=== PATIENT | female | born 1990 | race Hispanic/Latino ===

== ENCOUNTER 2017-03-26 22:19 | Emergency (ER) | payer BC ==
[2017-03-26 22:33] VITALS: BP 152/82; PULSE 64; RESP 18; TEMP 98; O2SAT 99
--- NOTE | 2017-03-26 23:00 | ED PDOC ---
HPI: General Adult Time Seen by Provider: 03/26/17 22:58 Chief Complaint (Nursing): Breast Problem Chief Complaint (Provider): BREAST PAIN History Per: Patient (26 Y/O FEMALE HERE WITH RIGHT BREAST PAIN ASSOCIATED WITH CYST. 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 HAS HAD ULTRASOUND LAST YEAR WNL. DENIES ANY FEVERS OR CHILLS.) Past Medical History Reviewed: Historical Data, Nursing Documentation, Vital Signs Vital Signs: Last Vital Signs Temp 98.0 F 03/26/17 22:29 Pulse 64 03/26/17 22:29 Resp 18 03/26/17 22:29 BP 152/82 H 03/26/17 22:29 Pulse Ox 99 03/26/17 23:03 - Family History Family History: States: No Known Family Hx - Home Medications Home Medications: Ambulatory Orders Medication Instructions Recorded Ibuprofen [Motrin] 600 mg PO Q8 PRN #21 tab 03/26/17 - Allergies Allergies/Adverse Reactions: Allergies Allergy/AdvReac Type Severity Reaction Status Date / Time No Known Allergies Allergy Verified 03/26/17 22:33 Review of Systems ROS Statement: Except As Marked, All Systems Reviewed And Found Negative Physical Exam - Reviewed Nursing Documentation Reviewed: Yes Vital Signs Reviewed: Yes - Physical Exam Appears: Positive for: Well, Non-toxic, No Acute Distress Head Exam: Positive for: ATRAUMATIC, NORMAL INSPECTION, NORMOCEPHALIC Skin: Positive for: Normal Color, Warm, DRY Eye Exam: Positive for: EOMI, Normal appearance, PERRL ENT: Positive for: Normal ENT Inspection Neck: Positive for: Normal, Painless ROM Cardiovascular/Chest: Positive for: Regular Rate, Rhythm, Other (NO ERYTHEMA/ CELLULITIS NOTED OF RIGHT BREAST. TENDERNESS AND TWO 0.2 CM LESION NOTED RIGHT LATERAL BREAST.) Respiratory: Positive for: CNT, Normal Breath Sounds Gastrointestinal/Abdominal: Positive for: Normal Exam, Bowel Sounds, Soft Back: Positive for: Normal Inspection Extremity: Positive for: Normal ROM Neurologic/Psych: Positive for: Alert, Oriented - ECG O2 Sat by Pulse Oximetry: 99 - Progress ED Course And Treament: D/W PATIENT IMPORTANCE OF F/U AND NEED TO OBTAIN ULTRASOUND TO EVALUATE FOR CANCER. NO OBVIOUS SIGN OF INFECTION NOTED AT THIS TIME. PATIENT CURRENTLY HAS PERIOD. WILL START PATIENT Disposition - Clinical Impression Clinical Impression: Pain of breast - Patient ED Disposition Is Patient to be Admitted: No - Disposition [facility] Disposition: Routine/Home Disposition Time: 23:07 Condition: FAIR Prescriptions: Ibuprofen [Motrin] 600 mg PO Q8 PRN #21 tab PRN Reason: Pain, Moderate (4-7) Instructions: Breast Self Exam for Women (ED) Forms: [facility] (Hebrew)
== END 2017-03-26 23:00 | disposition home or self-care (01) ==
LOC: EDSEX 22:19 → H.ER 22:19
DX: N64.4 Mastodynia (principal)